=== PATIENT | male | born 1985 | race Caucasian/White ===

== ENCOUNTER 2024-03-19 20:48 | Emergency (ER) | payer SELFPAY ==
[2024-03-19] MEDS ORDERED: Ketorolac Tromethamine 30 MG (1 mL) VIAL ONE (21:55)
[2024-03-19 22:08] LABS: Actual Bicarbonate (HCO3v) 24.5 mEq/L (22-28); Analyzer IN Cardio CS ER; Base Excess -0.2 mEq/L (-2 - +2); Chloride (VBG) 100 mmol/L (98-106); Critical Notified By: CP.PH; Hematocrit-VBG 48 % (42.0-52.0); Hemoglobin (Hb) 16.4 g/dL (13.2-17.3); Potassium (VBG) 4.01 mmol/L (3.70-5.30); Puncture Site Other Site; Sodium 139 mmol/L (133-146); pH (venous) 7.399 (7.32-7.43)
[2024-03-19 22:23] LABS: #Basophils 0.09 10x3/uL (0.0-0.2); #Eosinophils 0.17 10x3/uL (0.0-0.5); #Monocytes 0.75 10x3/uL (0.0-1.1); #Neutrophils 5.89 10x3/uL (1.5-8.4); %Monocytes 8.7 % (0.0-10.0); Hematocrit 45.8 % (38.8-50.0); Hemoglobin 15.4 g/dL (13.5-17.5); Mean Corpuscular HGB CONC 33.6 g/dL (32.0-36.0); Mean Corpuscular Hemoglobin 30.7 pg (27.0-33.0); Mean Corpuscular Volume 91.4 fL (81.2-95.1); Platelet Count 296 10x3/uL (150-450); RBC Distribution Width 12.1 % (11.5-14.5); Red Blood Cell (RBC) Count 5.01 10x6/uL (4.32-5.72); White Blood Cell (WBC) Count 8.7 10x3/uL (3.5-10.5)
[2024-03-19 22:42] LABS: ALT (SGPT) 35 U/L (8-55); AST (SGOT) 22 U/L (5-34); Albumin 3.9 g/dL (3.5-5.0); Alkaline Phosphatase 70 U/L (40-110); Anion Gap 17 mmol/L (10-20); BUN (Urea Nitrogen) 25 mg/dL (8.9-20.6); Bilirubin, Total 0.5 mg/dL (0.2-1.2); Calc. Creatinine Clearance 0 mL/min (70-130); Calcium 9.4 mg/dL (7.8-10.44); Carbon Dioxide 23 mmol/L (22-29); Chloride 101 mmol/L (98-107); Estimated GFR 39; Globulin 3.4 g/dL (2.4-3.5); Glucose 112 mg/dL (70-105); Lipase 17 U/L (8-78); Magnesium 2.3 mg/dL (1.6-2.6); Potassium 4.1 mmol/L (3.5-5.1); Protein, Total 7.3 g/dL (6.0-8.3); Sodium 137 mmol/L (136-145)
[2024-03-19 22:59] LABS: Bilirubin Neg (Negative); Blood, Urine Negative (Negative); Clarity Clear (Clear); Glucose, Urine (Dipstick) Normal (Negative); Ketone, Urine Negative (Negative); Leukocyte Negative (Negative); Nitrite Negative (Negative); Protein, Urine (Dipstick) 15 mg/dl (Neg-Trace); Urobilinogen Normal mg/dL (Less than 2)
[2024-03-19 23:17] LABS: Bacteria/HPF Rare-Few HPF (None Seen); CAUTI Indications for Culture Pelvic or flank pain; RBC/HPF None Seen HPF (0-3); Squamous Epithelial 0-3 HPF (0-3); Urine Culture Reflex No No; WBC/HPF 0-3 HPF (0-3)
[2024-03-20 12:39] LABS: Hemoglobin A1c 5.7 % (4.0-6.0)
== END 2024-03-19 23:58 | disposition home or self-care (01) ==
LOC: CSHERS 20:48
DX: N28.9 Disorder of kidney and ureter, unspecified (principal); R10.30 Lower abdominal pain, unspecified; Z55.6 Problems related to health literacy
CPT/HCPCS: 74177; 80053; 81001; 82010; 82805; 83036; 83605; 83690; 83735; 84443; 85025; 96374; J1885